=== PATIENT | male | born 1935 | race Caucasian/White ===

== ENCOUNTER 2020-05-11 05:44 | Emergency (ER) | payer MEDICARE ==
[2020-05-11 06:53] LABS: HEMOGLOBIN 13.9 gm/dl (14.0-17.5); RED BLOOD COUNT 4.83 M/UL (4.20-5.50); WHITE BLOOD COUNT 8.7 K/UL (4.5-11.0)
[2020-05-11 07:27] LABS: BUN/CREATININE RATIO 25 (0-10)
== END 2020-05-11 09:14 | disposition home or self-care (01) ==
LOC: ER1 05:44
PROVIDERS: Family Medicine
DX: R07.9 Chest pain, unspecified (principal); M79.621 Pain in right upper arm; G20 Parkinson's disease; Z91.81 History of falling
CPT/HCPCS: 71045; 80053; 82550; 82553; 83874; 84484; 85025; 99285

== ENCOUNTER 2020-10-18 02:13 | Emergency (ER) | payer MEDICARE ==
[2020-10-18 03:07] LABS: RED BLOOD COUNT 4.57 M/UL (4.20-5.50); WHITE BLOOD COUNT 6.3 K/UL (4.5-11.0)
[2020-10-18 03:31] LABS: BUN/CREATININE RATIO 26 (0-10)
== END 2020-10-18 06:58 | disposition home or self-care (01) ==
LOC: ER1 02:13
PROVIDERS: Family Medicine
DX: G20 Parkinson's disease (principal)
CPT/HCPCS: 70450; 71045; 80053; 81001; 82550; 82553; 83874; 84484; 85025; 85610; 87040; 93005; 96374; 99284; J2060

== ENCOUNTER → 2021-02-18 | Day surgery (SDC) | payer MEDICARE ==
[~2021-02-18] MED LIST: AMANTADINE100 M1 PO; ATIVAN 1MG TABLE1 MG PO; CARBIDOPA-LEVO1 EAC1 PO; GABAPENTIN100 MG PO; KLONOPIN TAB 00.5 MG PO; MEGESTROL400 MG/12 PO; PRAVASTATIN SOD40 MG PO
== END | disposition home or self-care (01) ==
LOC: OR 07:02
DX: K94.23 Gastrostomy malfunction (principal); I10 Essential (primary) hypertension; G20 Parkinson's disease; Z88.5 Allergy status to narcotic agent; Z87.891 Personal history of nicotine dependence
CPT/HCPCS: J2704; J7120

== ENCOUNTER → 2021-03-22 | Outpatient (CLI) | payer MEDICARE | LOC: RAD 12:23 | DX: R05.9 Cough, unspecified (principal) | CPT/HCPCS: 71046 ==

== ENCOUNTER → 2021-04-23 | Outpatient (CLI) | payer MEDICARE | LOC: RAD 11:00 | DX: R13.10 Dysphagia, unspecified (principal); K94.23 Gastrostomy malfunction | CPT/HCPCS: 74018; 74230; 92611-GN ==